=== PATIENT | female | born 1955 | race Caucasian/White ===

== ENCOUNTER 2021-12-06 12:35 | Outpatient (CLI) | payer MEDICARE, BC, SELFPAY | END 2021-12-06 12:36 | disposition home or self-care (01) | LOC: OP CLINIC 12:37 | PROVIDERS: PCP Family Medicine; Visit Provider Surgery | DX: Z12.11 Encounter for screening for malignant neoplasm of colon (principal); K63.5 Polyp of colon; K57.30 Diverticulosis of large intestine without perforation or abscess without bleeding | CPT/HCPCS: 45385; 88305; 99153; J2250; J3010 ==

== ENCOUNTER 2022-01-18 08:04 | Outpatient (CLI) | payer MEDICARE, BC, SELFPAY ==
[2022-01-18 12:09] LABS: Albumin* 4.4 g/dL (3.3-5.0); Chloride* 105 mmol/L (96-114); Potassium* 4.2 mmol/L (3.6-5.1); Sodium* 141 mmol/L (135-149)
[2022-01-18 12:11] LABS: Carbon Dioxide* 27 mmol/L (20-32); Cholesterol* 226 mg/dL (90-199); Creatinine* 0.6 mg/dL (0.5-1.5); Estimated Glomerular Filt Rate 100 ml/min
[2022-01-18 12:12] LABS: Alanine Aminotransferase* 16 U/L (4-35); Alkaline Phosphatase* 99 U/L (40-150); Aspartate Amino Transferase* 21 U/L (12-35); Bilirubin Total* 0.6 mg/dL (0.1-1.5); Blood Urea Nitrogen* 15 mg/dL (7-30); Calcium* 9.1 mg/dL (8.4-10.6); Glucose* 105 mg/dL (60-115); HDL Cholesterol* 76 mg/dL (>=50); LDL Cholesterol Calculated 134 mg/dL (<100); Triglycerides* 80 mg/dL (40-149)
== END 2022-01-18 08:05 | disposition home or self-care (01) ==
PROVIDERS: PCP Family Medicine; Visit Provider Family Medicine
DX: Z00.00 Encounter for general adult medical examination without abnormal findings (principal); E78.5 Hyperlipidemia, unspecified
CPT/HCPCS: 80053; 80061

== ENCOUNTER 2022-02-01 14:13 | Outpatient (CLI) | payer MEDICARE, BC, SELFPAY ==
--- NOTE | 2022-02-01 14:30 | CRLHL7_ITS ---
For Patients: As a result of the Century Cures Act, medical imaging exams and procedure reports are released immediately into your electronic medical record. You may view this report before your referring provider. If you have questions, please contact your health care provider. DXA BONE MINERAL DENSITY STUDY Current height (in): 64.0. Weight (lb): 155.0. Menopause age: 63. Ethnicity: White. 1. Have you had a previous hip or vertebral fracture? No. 2. Have you had any fractures during your adult life which did not result from significant trauma (e.g., auto accident)? No. 3. Did either of your parents have a hip fracture? No. 4. Do you smoke? No. 5. Have you ever taken Glucocorticoids? No. 6. Do you have rheumatoid arthritis? No. 7. Do you have secondary osteoporosis? No. 8. Do you drink 3 or more alcoholic drinks per day? No. 9. Are you being treated for osteoporosis? No. 10. Have you ever taken any of the following medications: Actonel, Evista, Fosamax, Miacalcin, Reclast, Boniva, Forteo, HRT (i.e. estrogen/hormone therapy), Protelos, Prolia, Vitamin D, Calcium, other ??? please specify. ANSWER: Yes, vitamin D. 11. Do you have any of the following medical conditions: Anorexia or bulimia, asthma or emphysema, end stage renal disease, hyperparathyroidism, any seizure disorders, cancer, inflammatory bowel diseases, hysterectomy, other ??? please specify. ANSWER: Yes, hysterectomy. 12. What was your maximum height (inches)? 64. 13. Do you perform weight bearing exercise regularly? Yes. 14. Do you regularly consume dairy products? Yes. 15. Do you drink caffeinated beverages? Yes. 16. At what age did your period start? 13. 17. Are you premenopausal? No. 18. How many full term pregnancies have you had? 2. 19. Have you ever missed your period for more than 6 months in a row (not including or menopause)? No. TECHNIQUE: Bone mineral density study was performed using the [employer]. FINDINGS: The results of the study expressed as bone mineral density (BMD) are as follows: Lumbar spine L1 to L4: BMD: 1.054 g/cm2. T-score: 0.1. Z-score: 1.9. Neck Left: BMD: 0.729 g/cm2. T-score: -1.1. Z-score: 0.4. Right: BMD: 0.754 g/cm2. T-score: -0.9. Z-score: 0.7. Total Left: BMD: 0.903 g/cm2. T-score: -0.3. Z-score: 0.9. Right: BMD: 0.902 g/cm2. T-score: -0.3. Z-score: 0.9. IMPRESSION: Osteopenia. FRAX 10-year Fracture Risk Major Osteoporotic Fracture: 8.2 percent Hip Fracture: 0.7 percent Reported Risk Factors: [place] () Neck BMD = 0.729, BMI = 26.6 Bon Gaines M.D. Diagnostic Radiologist [email or web address] Transcribed: 8:53 am DW/Dictated by: Bon Gaines MD @ 02/02/2022 8:23:00 AM (Electronically Signed)
== END 2022-02-01 14:14 | disposition home or self-care (01) ==
LOC: RAD 14:13
PROVIDERS: PCP Family Medicine; Visit Provider Family Medicine
DX: Z78.0 Asymptomatic menopausal state (principal); M85.89 Other specified disorders of bone density and structure, multiple sites
CPT/HCPCS: 77080

== ENCOUNTER 2022-02-06 14:02 | Outpatient (CLI) | payer MEDICARE, BC, SELFPAY ==
[2022-02-06 16:29] LABS: Vitamin D 25 Hydroxy* 39 ng/mL (30-80)
== END 2022-02-06 14:03 | disposition home or self-care (01) ==
LOC: NFLDREF 14:02
PROVIDERS: PCP Family Medicine; Visit Provider Family Medicine
DX: M85.852 Other specified disorders of bone density and structure, left thigh (principal)
CPT/HCPCS: 82306

== ENCOUNTER 2022-10-11 09:05 | Outpatient (CLI) | payer MEDICARE, BC, SELFPAY ==
--- NOTE | 2022-10-11 09:15 | CRLHL7_ITS ---
For Patients: As a result of the Century Cures Act, medical imaging exams and procedure reports are released immediately into your electronic medical record. You may view this report before your referring provider. If you have questions, please contact your health care provider. BILATERAL SCREENING MAMMOGRAM WITH COMPUTER-AIDED DETECTION AND TOMOSYNTHESIS TECHNIQUE: CC and MLO views were obtained. These mammographic images have been obtained using full-field digital technique. These mammographic images were interpreted with the benefit of computer-aided detection. Breast Tomosynthesis was used in this interpretation. COMPARISON FILM: 09/09/21, 08/31/20, 06/17/19 FINDINGS: The breasts are heterogeneously dense, which may obscure small masses IMPRESSION: There is no radiographic evidence for malignancy. ASSESSMENT: BI-RADS Category 2: Benign RECOMMENDATION: Routine screening mammogram in 1 year. A lay language report of this examination will be provided to the patient. Bon Gaines M.D. Diagnostic Radiologist [email or web address] EMILIE/[email or web address] Transcribed: 1:32 p.[email or web address] dhillon/Dictated by: Bon Gaines MD @ 10/11/2022 12:01:00 PM (Electronically Signed)
== END 2022-10-11 09:06 | disposition home or self-care (01) ==
LOC: MAMMO 09:06
PROVIDERS: PCP Family Medicine; Visit Provider Family Medicine
DX: Z12.31 Encounter for screening mammogram for malignant neoplasm of breast (principal); R92.2 Inconclusive mammogram
CPT/HCPCS: 77063; 77067

== ENCOUNTER 2023-02-28 08:00 | Outpatient (CLI) | payer MEDICARE, BC, SELFPAY | END 2023-02-28 08:01 | disposition home or self-care (01) | LOC: NFLDREF 03-02 12:00 | PROVIDERS: PCP Family Medicine; Referring Provider Family Medicine; Visit Provider Family Medicine | DX: Z00.00 Encounter for general adult medical examination without abnormal findings (principal); E78.5 Hyperlipidemia, unspecified; M85.852 Other specified disorders of bone density and structure, left thigh | CPT/HCPCS: 80053; 80061; 82306 ==

== ENCOUNTER 2023-05-02 13:00 | Outpatient (RCR) | payer MEDICARE, BC, SELFPAY ==
--- NOTE | 2023-03-23 15:09 | PT.OPEX ---
Please review and sign the attached outpatient physical therapy evaluation completed on 03/23/23. Thank you. PT [facility] Outpatient Eval PT [facility] Outpatient Eval Start: 03/21/23 07:56 Freq: Status: Active Protocol: Document 03/23/23 07:26 TLQ (Rec: 03/23/23 12:10 TLQ [id number]) E-signed By Leslie Alatorre DPT Physical Therapy Outpatient Evaluation Insurance Information Recert Due Date 06/21/23 Insurance Name Medicare B,Blue Cross/Blue Shield Medical Diagnosis Plantar fascia fibromatosis M72.2 Treating Diagnosis Pain in right foot M79.671 Pain in left foot M79.672 Muscle weakness M62.81 Referring MD Judith Hughes MD Subjective Subjective Has been having pain in both of her feet for a while, more so on the left. No specific injury that she can remember. Hurts the worst when she first gest out of bed. Also notices the pain when she is going on her daily walks, able to continue her walks but notices the pain. Typically walks for about 50-60 minutes per day. Recently got new shoes to improve support of her feet. Has not found anything that helps relieve the pain. Had a meniscal tear on the L about 1 /5 years ago, non surgical. Pain Comments at best: 2-3/10 on L, 0/10 on R at worst: 8/10 location: L>R plantar fascia aggravating factors: morning, walking Current Work Status Retired Precautions Therapy Limitations/Systems Review Not Limited Objective Other/Pertinent Objective Ankle DF ROM at wall: R 11.5 cm, L 12 cm Foot/ankle strength: dorsiflexion 5 B plantarflexion 17 SLHR on R, 16 SLHR on L inversion 5 B eversion R 5, L 4+ great toe extension 5 B TTP: plantar fascia B, medial longitudinal arch B, posterior tibialis muscle belly B, medial gastroc B Joint mobility: normal Gait: normal Functional Test Performed & Score FAAM - ADL Subscale 73/80 Assessment Assessment/Impression Patient is a 67 year old female who presents to outpatient physical therapy to address bilateral heel/foot pain, worse on the left. Symptoms consistent with plantar fasciitis as patient's symptoms are the worst in the morning with her first steps after she gets out of bed. She also reports soreness when walking but does not currently limit her from walking her desired distance, recently bought new walking shoes to provide more support. Strength assessment today revealed plantarflexion weakness bilaterally. No concerns regarding ankle joint mobility at this time. Patient was tender bilaterally with palpation of plantar fascia, medial gastroc, and posterior tibialis muscle belly. She was educated on anatomy and symptom pathology while in clinic today, used visual diagrams to assist with patient education. Performed STM to reduce tissue and muscular restrictions. Initiated a home program consisting of mobility and strength interventions, provided patient with a printout. She is appropriate for skilled physical therapy interventions to reduce plantar fascia pain and meet the goals as outlined below. Primary Functional Limitations plantarflexion weakness, initial steps in morning, bilateral plantar fascia pain Plan of Care Rehabilitation Potential Good Physical Therapy Goals Within 8-10 visits: - Patient will complete >20 SLHR bilaterally to demonstrate increased plantarflexion strength. - Patient will be able to complete daily walks for physical activity without onset of discomfort until at least 30 minutes of duration. - Subjective reports of pain will decrease from 8/10 to <4/ 10 to tolerate first steps when she wakes up in the morning. - Patient will adhere to HEP in order to manage symptoms IND outside of therapy. Treatment Plan/Direct Interventions Gait Training,Joint Mobilization,Manual Therapy, Neuromuscular Re-ed,Self-Care/ Home Management,Therapeutic Activities,Therapeutic Exercises Frequency/Duration 1x/week for 8-10 visits Patient Will Be Discharged From Therapy Completion of LTG(s),Skills Plateau,Independent w/HEP, Independently Progressing Evaluation Billing Untimed Code Treatment Minutes 25 Complexity Low Certification Information Initial Certification Date 03/23/23 Ending Certification Date 06/21/23 Provider Signature Shows Agreement With POC & Medical Necessity Physician Signature & Date Requested Please Sign/Date Here Physician Comment/Change : Physician NPI Number #
== END 2023-05-30 13:13 | disposition home or self-care (01) ==
PROVIDERS: PCP Family Medicine; Visit Provider Family Medicine
DX: M72.2 Plantar fascial fibromatosis (principal); M79.671 Pain in right foot; M79.672 Pain in left foot; M62.81 Muscle weakness (generalized); Z51.89 Encounter for other specified aftercare
CPT/HCPCS: 97110; 97140; 97161

== ENCOUNTER 2023-08-06 09:45 | Outpatient (RCR) | payer MEDICARE, BC, SELFPAY ==
--- NOTE | 2023-07-30 12:12 | OT.OPOE ---
OT Outpatient Ortho Eval OT Outpatient Ortho Eval* Start: 07/30/23 09:04 Freq: Status: Active Protocol: Document 07/30/23 09:04 SIS (Rec: 07/30/23 12:08 SIS [id number]) E-signed By Najma Enriquez, OTR/L, CLT OT OP Ortho Eval Details Complexity Complexity Low Insurance Information Insurance Information Blue Cross/Blue Shield, Medicare B Outpatient History/Precautions Current Condition/Medical Diagnosis Referring Provider Dr. 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 She also is helping to support her 101 year old mother who resides in an apt but patient is cooking food for her and doing daily check ins Social History Employment Status Retired Current Occupation Was previously working in a [employer], but retired now Hobbies Sewing, knitting, cooking, being active, gardening Fitness exercise 5-6 times per week- walking, swimming, daily yoga, biking. Ortho Subjective Subjective Subjective This is a 67-year-old R hand dominant patient, who was referred to skilled OT from her PCP. She presents to the clinic with a chief compliant of bilateral hand/thumb joint pain (today L is worse than R) . Patient states that she has had pain in both hands at the thumb joints for a while on and off. Then in the beginning of June she started doing some yoga and the pain got worse. Last week it was especially bad. She has not had any particular injury. She does not have any tingling or weakness in fingers. At some point maybe a little bit swelling but not much with none noted today. She has had no previous treatment for this condition. Patient's pinch & insurance assistant strengths are below the norms for her age/gender. She has a full active range of motion bilaterally with only slight muscle atrophy at the thenar. Patient states that she has a pre-garcia splint for 1 hand (can be worn by R or L) that she is wearing during heavy hand activities, asked patient to bring this into the clinic so therapist could look at it, printed a handout for a Comfort Cool CMC splint that can be purchased on [employer]-if patient wishes to do this. Pain Assessment Pain Present Pain Present Pain Reported Location Right Hand Description Dull, Achy,Throbbing,Chronic, With Movement Intensity 1 Left Hand Description Pressure,Dull, Achy,Throbbing, With Movement Intensity 4 Range of Motion and Strength Hand/Finger/Thumb Range of Motion and Strength Hand/Finger/Thumb Range of Motion and Patient has FULL AROM of Strength bilateral hands/digits and wrists (See grid for insurance assistant and pinch strengths) Hand Pinch/Cage Maker Machine Strength Hand Right Cage Maker Machine Strength Position 1 (lbs) 43 Cage Maker Machine Strength Position 2 (lbs) 43 Lateral Pinch Strength (lbs) 14 Three Point Pinch (lbs) 10 Tip Pinch Strength (lbs) 9 Left Cage Maker Machine Strength Position 1 (lbs) 31 Cage Maker Machine Strength Position 2 (lbs) 45 Lateral Pinch Strength (lbs) 11 Three Point Pinch (lbs) 10 Tip Pinch Strength (lbs) 9 OT Objective Data Observations/Posture/Limb Appearance Objective Observations No noted swelling at time of todays EVAL No deformities noted Sensation Sensation Assessment Summary Comments Sensation is intact to light touch, pressure, pain and temperature Upper Extremity Special Tests Tenosynovitis Wrist Finklestein Test Positive Right Degenerative Arthritis Hand Trapeziometacarpal Joint Grind Test Positive Left,Positive Right Median Nerve-Carpal Tunnel Wrist Phalen Test Negative Left,Negative Right Ulnar Nerve Froment's Sign Negative Left,Negative Right OT Problems Problems Problems Decreased Strength,Pain, Lifting,Gripping,Pinching Other Problems Writing,Opening Containers, Dressing Patient Potential Excellent Assessment Assessment Assessment This is a 67-year-old R hand dominant patient, who was referred to skilled OT from her PCP. She presents to the clinic with a chief compliant of bilateral hand/thumb joint pain (today L is worse than R) . Patient states that she has had pain in both hands at the thumb joints for a while on and off. Then in the beginning of June she started doing some yoga and the pain got worse. Last week it was especially bad. She has not had any particular injury. She does not have any tingling or weakness in fingers. At some point maybe a little bit swelling but not much with none noted today. She has had no previous treatment for this condition. Patient's pinch & insurance assistant strengths are below the norms for her age/gender. She has a full active range of motion bilaterally with only slight muscle atrophy at the thenar. 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 Occupational Therapy Treatment Plan - OP Potential Rehabilitation Potential Excellent Barriers Barriers to goal attainment None Set Goals Goals Set with Patient Yes Goals Goals 1. Patient will verbalize 3 activity modifications to decrease abusive/overloading of the muscles, joints, connective tissues & tendons. 2. There is high-level evidence that supports a standardized protocol of thumb proprioception exercises to address related deficits and improve ADL performance. Therapist will advance patient through all 3 stages of her individualized HEP while using errorless learning for accuracy of program. Patient will be able to demonstrate 100% of her program with use of visual/written aids. 3. Pt will demonstrate pain- free insurance assistant and pinch strength comparable to the uninvolved side in order to improve functional grasp, hold, reach, and lifting ability needed to complete self-care, leisure tasks, and work activities. 4. Through activity participation in skilled therapy sessions, and consistency in performing a customized HEP, patient will improve capacity of bilateral thumb joints, tendons and muscles to manage load in order to have less pain with ADLs, work, leisure activities and IADLs. 5. Patient will increase R ( dominant) hand insurance assistant strength from 43 lbs to >48 lbs (gain of 5 pounds) in order to return to everyday tasks w/o fear of dropping items. Target Date 8 weeks Treatment Plan Treatment Plan Evaluation,Edema Control,Joint Mobilization,Manual Therapy, Splinting,Ultrasound, Therapeutic Exercise,Self Care /Home Management,Education Expected Frequency 1-2x Week Expected Duration 8-10 Weeks Home Program Home Program Home Program Initiated Home Program Specifics CMC arthritis Program CMC Joint Education/Handouts provided to patient on 07/30/23 Handouts provided to patient today included: Article/ Patient education on CMC Arthritis; Comfort Cool Thumb CMC Restriction Splint AND/OR a picture of a Thumb Support Brace/Joint Stabilizer Orthosis; Handouts on Hand Exercises that are specific to CMC arthritis; Handouts/ Suggestions for Ergonomic friendly-everyday products (ex : álvarez mckinley aid, [employer]Hold Aqua Silicone Adaptive Aid, [place] Cuff, Built up handles-adding foam attachments for building up handles and a twist off bottle cell feed department supervisor). Handout on Joint protection, proper insurance assistant holds in order to have less stress on the joint. Handout on Myofascial release of the Adductor Muscles in the thumb webspace; Handout on CMC Osteoarthritis Program: Strengthening/Muscle Re- Education exercises; Handout on ?Hand Care Tips? as well as activity modifications Recertification Information Recertification Information Initial Certification Date 07/30/23 Recertification Due Date 10/28/23 Click To Default 'Per treatment plan' Per treatment plan Continued Plan of Care and Interventions Per treatment plan Provider Signature Shows Agreement With POC & Medical Necessity Physician Comment/Change Comment or Changes Physician NPI Number #
== END 2023-12-04 23:59 | disposition home or self-care (01) ==
PROVIDERS: PCP Family Medicine; Visit Provider Family Medicine
DX: M25.541 Pain in joints of right hand (principal); M25.542 Pain in joints of left hand; M79.641 Pain in right hand; M79.642 Pain in left hand; M25.649 Stiffness of unspecified hand, not elsewhere classified; Z51.89 Encounter for other specified aftercare
CPT/HCPCS: 97110; 97140; 97165; 97535; X5282

== ENCOUNTER 2023-12-12 14:57 | Outpatient (CLI) | payer MEDICARE, BC, SELFPAY ==
--- NOTE | 2023-12-12 15:20 | CRLHL7_ITS ---
For Patients: As a result of the Cures Act, medical imaging exams and procedure reports are released immediately into your electronic medical record. You may view this report before your referring provider. If you have questions, please contact your health care provider. BILATERAL SCREENING MAMMOGRAM WITH COMPUTER-AIDED DETECTION AND TOMOSYNTHESIS TECHNIQUE: CC and MLO views were obtained. These mammographic images have been obtained using full-field digital technique. These mammographic images were interpreted with the benefit of computer-aided detection. Breast Tomosynthesis was used in this interpretation. COMPARISON FILM: 10/11/22, 09/09/21, 08/31/20. FINDINGS: There are scattered areas of fibroglandular density IMPRESSION: There is no radiographic evidence for malignancy. ASSESSMENT: BI-RADS Category 2: Benign RECOMMENDATION: Routine screening mammogram in 1 year. A lay language report of this examination will be provided to the patient. Bon Gaines M.D. Diagnostic Radiologist [email or web address]/[email or web address] Transcribed: 12:46 p.[email or web address] dhillon/Dictated by: Bon Gaines MD @ 12/14/2023 12:36:00 PM (Electronically Signed)
== END 2023-12-12 14:58 | disposition home or self-care (01) ==
LOC: MAMMO 14:57
PROVIDERS: PCP Family Medicine; Visit Provider Family Medicine
DX: Z12.31 Encounter for screening mammogram for malignant neoplasm of breast (principal)
CPT/HCPCS: 77063; 77067

== ENCOUNTER 2024-04-25 08:46 | Outpatient (CLI) | payer MEDICARE, BC, SELFPAY | END 2024-04-25 08:47 | disposition home or self-care (01) | LOC: NFLDREF 04-29 14:50 | PROVIDERS: PCP Family Medicine; Referring Provider Family Medicine; Visit Provider Family Medicine | DX: M85.852 Other specified disorders of bone density and structure, left thigh (principal); E78.5 Hyperlipidemia, unspecified; Z13.9 Encounter for screening, unspecified | CPT/HCPCS: 80053; 80061; 82306 ==

== ENCOUNTER 2024-05-29 14:09 | Outpatient (CLI) | payer MEDICARE, BC, SELFPAY ==
--- NOTE | 2024-05-29 14:30 | CRLHL7_ITS ---
For Patients: As a result of the Century Cures Act, medical imaging exams and procedure reports are released immediately into your electronic medical record. You may view this report before your referring provider. If you have questions, please contact your health care provider. DXA BONE MINERAL DENSITY STUDY Reason for exam: Osteopenia. Current height (in): 64. Weight (lb): 168. Menopause age: 63. Ethnicity: White. 1. Have you had a previous hip or vertebral fracture? No. 2. Have you had any fractures during your adult life which did not result from significant trauma (e.g., auto accident)? No. 3. Did either of your parents have a hip fracture? Yes. 4. Do you smoke? No. 5. Have you ever taken Glucocorticoids? No. 6. Do you have rheumatoid arthritis? No. 7. Do you have secondary osteoporosis? No. 8. Do you drink 3 or more alcoholic drinks per day? No. 9. Are you being treated for osteoporosis? No. 10. Have you ever taken any of the following medications: Actonel, Evista, Fosamax, Miacalcin, Reclast, Boniva, Forteo, HRT (i.e., estrogen/hormone therapy), Protelos, Prolia, Vitamin D, Calcium, other ??? please specify. ANSWER: Yes, vitamin D. 11. Do you have any of the following medical conditions: Anorexia or bulimia, asthma or emphysema, end stage renal disease, hyperparathyroidism, any seizure disorders, cancer, inflammatory bowel diseases, hysterectomy, other ??? please specify. ANSWER: Yes, hysterectomy. 12. What was your maximum height (inches)? 64. 13. Do you perform weight bearing exercise regularly? Yes. 14. Do you regularly consume dairy products? Yes. 15. Do you drink caffeinated beverages? Yes. 16. At what age did your period start? 13. 17. Are you premenopausal? No. 18. How many full-term pregnancies have you had? 2. 19. Have you ever missed your period for more than 6 months in a row (not including or menopause)? No. TECHNIQUE: Bone mineral density study was performed using the [employer]. FINDINGS: The results of the study expressed as bone mineral density (BMD) are as follows: Lumbar spine L1 to L4: BMD: 1.039 g/cm2. T-score: -0.1. Z-score: 1.9 Neck Left: BMD: 0.686 g/cm2. T-score: -1.5. Z-score: 0.2 Right: BMD: 0.704 g/cm2. T-score: -1.3. Z-score: 0.4 Total Left: BMD: 0.926 g/cm2. T-score: -0.1. Z-score: 1.2 Right: BMD: 0.936 g/cm2. T-score: 0.0. Z-score: 1.3 IMPRESSION: Osteopenia. *Comparison exams done prior to 11/2019 were performed on different unit, [employer]. COMPARISON: Compared with scan of 02/01/2022, the bone mineral density has decreased by 1.4 percent at the spine and increased by 3.2 percent at the hip. FRAX 10-year Fracture Risk Major Osteoporotic Fracture: 16% Hip Fracture: 1.6% Reported Risk Factors: [place] () Neck BMD=0.686, BMI=28.8, parental fracture. Bon Gaines M.D. Diagnostic Radiologist [email or web address] [email or web address] [email or web address]/Dictated by: Bon Gaines MD @ 05/30/2024 8:51:00 AM (Electronically Signed)
== END 2024-05-29 14:10 | disposition home or self-care (01) ==
LOC: RAD 14:11
PROVIDERS: PCP Family Medicine; Visit Provider Family Medicine
DX: M85.852 Other specified disorders of bone density and structure, left thigh (principal); M85.88 Other specified disorders of bone density and structure, other site
CPT/HCPCS: 77080

== ENCOUNTER 2024-12-22 11:22 | Outpatient (CLI) | payer MEDICARE, BC, SELFPAY ==
--- NOTE | 2024-12-22 11:30 | CRLHL7_ITS ---
For Patients: As a result of the Century Cures Act, medical imaging exams and procedure reports are released immediately into your electronic medical record. You may view this report before your referring provider. If you have questions, please contact your health care provider. INDICATION: BILATERAL SCREENING MAMMOGRAM, ASYMPTOMATIC 69 Y/O FEMALE COMPARISON: 12/12/2023, 10/11/2022, 09/09/2021 TECHNIQUE: Digital mammogram in CC and MLO projections including computer-aided detection (CAD) and tomosynthesis. BREAST COMPOSITION: There are scattered areas of fibroglandular density. FINDINGS: No suspicious findings. ASSESSMENT: BI-RADS 2 Benign RECOMMENDATION: Annual screening mammogram. A lay language report of this examination will be provided to the patient. Dictated by: Bon Gaines MD @ 12/23/2024 09:13:18 (Electronically Signed)
== END 2024-12-22 11:23 | disposition home or self-care (01) ==
LOC: MAMMO 11:22
PROVIDERS: PCP Family Medicine; Visit Provider Family Medicine
DX: Z12.31 Encounter for screening mammogram for malignant neoplasm of breast (principal)
CPT/HCPCS: 77063; 77067

== ENCOUNTER 2025-05-11 08:13 | Outpatient (CLI) | payer MEDICARE, BC, SELFPAY | END 2025-05-11 08:14 | disposition home or self-care (01) | LOC: NFLDREF 05-14 14:40 | PROVIDERS: PCP Family Medicine; Referring Provider Family Medicine; Visit Provider Family Medicine | DX: R03.0 Elevated blood-pressure reading, without diagnosis of hypertension (principal); E78.5 Hyperlipidemia, unspecified | CPT/HCPCS: 80053; 80061; 82306 ==

== ENCOUNTER 2025-05-22 12:04 | Emergency (ER) | payer MEDICARE, BC, SELFPAY ==
[2025-05-22 12:23] VITALS: BP 157/94; PULSE 84; RESP 18; O2SAT 97
--- NOTE | 2025-05-22 14:10 | ED.ABDPAIN ---
HPI - Abdominal Pain General Date Seen: 05/22/25 Chief Complaint: Abdominal Pain Stated Complaint: Pain in lower abdomen, nausea Time Seen by Provider: 05/22/25 14:09 History of Present Illness HPI narrative: 69-year-old female a history of dyslipidemia, arthritis, white coat, presenting to the ER today with nausea and lower abdominal pain. Her symptoms began last night. Pain comes and goes in waves and when it occurs pain is so severe it makes her nauseous. Pain is in her lower abdomen but more on the left than on right. No trouble with bowel movements. No bloody urine or dysuria. She does have history of kidney stones with somewhat similar symptoms, , but she has not had a kidney stone for 35 years. It is not radiating to her flank today. She has a history of UTIs and has not had any UTI symptoms today or lately. No diarrhea or bloody stools. Allergies here in the ER pain is currently on the down swing and she is feeling a bit better. She politely declines offered pain and nausea medications. Related Data Home Medications ?Medication ?Instructions ?Recorded ?Confirmed cholecalciferol (vitamin D3) 25 25 mcg PO QDAY 07/19/23 05/22/25 mcg (1,000 unit) capsule Previous Rx's ?Medication ?Instructions ?Recorded rosuvastatin 5 mg tablet 5 mg PO QDAY #90 tabs 05/14/25 amoxicillin 875 mg-potassium 1 tab PO BID #14 tabs 05/22/25 clavulanate 125 mg tablet hydrocodone 5 mg-acetaminophen 325 1 - 2 tab PO Q4-6H PRN pain #10 05/22/25 mg tablet tabs ondansetron 4 mg disintegrating 4 mg PO Q8H PRN nausea and 05/22/25 tablet vomiting #10 tabs Allergies Allergy/AdvReac Type Severity Reaction Status Date / Time No Known Drug Allergies Allergy Verified 05/22/25 12:27 [facility] Medical History (Updated 05/22/25 @ 16:01 by Colby Banks MD) White coat syndrome without hypertension (05/14/25) ?R03.0 - Elevated blood-pressure reading, without diagnosis of hypertension (ICD-10) Bilateral plantar fasciitis ?M72.2 - Plantar fascial fibromatosis (ICD-10) Fall ?W19.XXXA - Unspecified fall, initial encounter (ICD-10) Injury of left knee (10/08/21) ?S89.92XA - Unspecified injury of left lower leg, initial encounter (ICD-10) Dyslipidemia (2018) ?E78.5 - Hyperlipidemia, unspecified (ICD-10) 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 - Primary osteoarthritis, unspecified wrist (ICD-10) Surgical History History of total hysterectomy with removal of both tubes and ovaries (2018) ?Z90.710 - Acquired absence of both cervix and uterus (ICD-10) ?Z90.722 - Acquired absence of ovaries, bilateral (ICD-10) ?Z90.79 - Acquired absence of other genital organ(s) (ICD-10) History of tonsillectomy (1975) ?Z90.89 - Acquired absence of other organs (ICD-10) Family History Prostate cancer Father Alzheimers disease Father Breast cancer Family/Other, Onset Age: 30 Stroke Mother, Onset Age: 92 Social History (Updated 05/14/25 @ 09:11 by Judith Hughes MD) Narrative: , retired from [employer], 3 kids, dog from ca 2024 non-smoker social drinker- 3/week exercise 5/ times per week- walking 60 minutes, walking, water aerobics What is your current living situation?: I presently have a place to live Problems where you live: no known problems In the past 12 months, utilities in danger of being shut off: no In past 12 months, lack of transportation kept you from medical appts, meetings, work, or getting things needed for daily living: no In the past 12 mos, have been you worried that your food would run out before you had money to buy more?: never true In the past 12 mos, the food you bought just didn't last and you didn't have money to buy more?: never true Smoking Status: Never smoker How often do you have a drink containing alcohol: 4 or more times a week How many standard drinks containing alcohol do you have on a typical day: 1 or 2 AUDIT-C Alcohol total score: 4 Non-prescribed substance use: denies use How often does anyone, including family, friends and others, physically hurt you: never How often does anyone, including family, friends and others, insult or talk down to you: never How often does anyone, including family, friends and others, threaten you with harm: never How often does anyone, including family, friends and others, scream or curse at you: never Exam Narrative: Exam Narrative: Constitutional: Appears well-developed and well-nourished. Alert. Conversant. Non toxic. HENT: Head: Atraumatic. Nose: Nose normal. Mouth/Throat: Oral mucosa is clear and moist. no trismus. Eyes: Conjunctivae normal. EOM normal. Pupils equal, round, and reactive to light. No scleral icterus. Neck: Normal range of motion. Neck supple. No tracheal deviation present. Cardiovascular: Normal rate, regular rhythm. No gallop. No friction rub. No murmur heard. Symmetric radial artery pulses Pulmonary/Chest: Effort normal. No stridor. No respiratory distress. No wheezes. No rales. No rhonchi . No tenderness. Abdominal: Soft. Bowel sounds normal. No distension. No mass. Marked left lower quad> left mid tenderness. No rebound. No guarding. No right-sided tenderness. No CVA tenderness. No upper abdominal tenderness. No inguinal hernia or mass. No rash. No umbilical hernia. Musculoskeletal: RUE: Normal range of motion. No tenderness. No deformity LUE: Normal range of motion. No tenderness. No deformity RLE: Normal range of motion. No edema. No tenderness. No deformity LLE: Normal range of motion. No edema. No tenderness. No deformity Neurological: Alert and oriented to person, place, and time. Normal strength. CN II-VII intact. No sensory deficit. GCS eye subscore is 4. GCS verbal subscore is 5. GCS motor subscore is 6. Normal coordination Skin: Skin is warm and dry. No rash noted. No pallor. Normal capillary refill. Psychiatric: Normal mood. Normal affect. Const: Vital Signs, click to edit/add: Vital Signs - 24 hr 05/22/25 12:23 05/22/25 15:34 Pulse Rate 83 Pulse Rate [Right Pulse Oximeter] 84 Respiratory Rate 18 18 Blood Pressure 146/89 H Blood Pressure [Ri ght Upper Arm] 157/94 H Pulse Oximetry 97 98 Oxygen Delivery Me thod Room Air Course Vital Signs Vital signs: Initial Vital Signs Temperature Source Temporal Artery Scan 05/22/25 12:23 Pulse Rate 84 05/22/25 12:23 Pulse Rhythm Regular 05/22/25 12:23 Pulse Strength 3+ Normal 05/22/25 12:23 Respiratory Rate 18 05/22/25 12:23 Blood Pressure 157/94 H 05/22/25 12:23 Blood Pressure Mean 115 H 05/22/25 12:23 Blood Pressure Position Sitting 05/22/25 12:23 Pulse Oximetry 97 05/22/25 12:23 Vital Signs Pulse Rate 84 05/22/25 12:23 Respiratory Rate 18 05/22/25 12:23 Blood Pressure 157/94 H 05/22/25 12:23 Pulse Oximetry 97 05/22/25 12:23 Pulse Rate 83 05/22/25 15:34 Respiratory Rate 18 05/22/25 15:34 Blood Pressure 146/89 H 05/22/25 15:34 Pulse Oximetry 98 05/22/25 15:34 Oxygen Delivery Method Room Air 05/22/25 15:34 Medications Administered Medications: Discontinued Medications Generic Name Dose Route Start Last Admin Trade Name Freq PRN Reason Stop Dose Admin Sodium Chloride 500 mls @ 500 mls/hr 05/22/25 14:11 05/22/25 16:19 0.9 % Sodium Chloride 500 Ml IV 05/22/25 15:10 Infused .Q1H ONE Infusion Ketorolac Tromethamine 15 mg 05/22/25 14:11 05/22/25 16:17 Ketorolac 15 Mg/Ml Inj IVP 05/22/25 14:12 Not Given ONCE ONE Ondansetron HCl 4 mg 05/22/25 14:11 05/22/25 16:19 Ondansetron 2 Mg/Ml Inj IVP 05/22/25 14:12 Not Given ONCE ONE MDM - Abdominal Pain MDM Narrative Medical decision making narrative: Presented to the Emergency Department with left lower quadrant abdominal pain beginning yesterday evening.. The differential diagnosis of abdominal pain includes: Appendicitis, Bowel Obstruction, Ischemia, Diverticulitis, Pancreatitis, UTI, kidney stone, Enteritis/Colitis, amongst many other etiologies. White count is 11.99. Kidney function electrolytes normal. Urinalysis is normal. No sign of hematuria or infection. CT scan indicates the presence of acute uncomplicated sigmoid diverticulitis. Given the patient's age, we will treat this with a course of antibiotics. No life threatening cause or need for emergent surgery or hospital admission is detected today. The patient was advised that if symptoms do not completely resolve within another 12-24 hours re-evaluation with primary care or return to the ED is indicated. The patient also understands that if they worsen, they should return to the ER right away. I discussed the uncertainty about the diagnosis and answered the patient's questions. Discussed the need for follow-up and potential for worsening and ER return precautions discussed. Discussed in detail. Prescriptions for [place] provided. Opiate precautions. Also prescription for Zofran. Augmentin 875/125 mg p.o. b.i.d. for 7 days. Lab Data Labs: Lab Results 05/22/25 05/22/25 Range/Units 14:29 14:42 WBC 11.99 H (4.50-11.00) K/uL RBC 4.86 (4.00-5.20) m/uL Hgb 14.5 (12.0-16.0) gm/dL Hct 42.4 (33.0-51.0) % MCV 87 (80-100) fL MCH 30 (26-34) pg MCHC 34 (32-36) gm/dL RDW Coeff of [place] 12.7 (11.5-15.5) % Plt Count 239 (140-440) K/uL Neut % (Auto) 78.1 H (42.0-72.0) % Lymph % (Auto) 13.8 L (20-44) % [place] % (Auto) 7.1 (0.0-11.0) % Eos % (Auto) 0.5 (0.0-7.0) % Baso % (Auto) 0.3 (0.0-3.0) % Neut # (Auto) 9.40 H (1.7-7.0) K/uL Lymph # (Auto) 1.70 (0.90-2.90) K/uL [place] # (Auto) 0.90 (0.00-0.90) K/UL Eos # (Auto) 0.10 (0.00-0.50) K/uL Baso # (Auto) 0.00 (0.00-0.30) K/uL Abs Immat Gran (auto) 0.00 (0.00-0.30) K/uL Imm/Tot Granulo (auto) 0.2 % Sodium 134 L (135-149) mmol/L Potassium 3.7 (3.6-5.1) mmol/L Chloride 99 (96-114) mmol/L Carbon Dioxide 25 (20-32) mmol/L Anion Gap 10 (7-15) mEq/L BUN 10 (7-30) mg/dL Creatinine 0.6 (0.5-1.5) mg/dL Estimated GFR 98 ml/min Glucose 102 (60-115) mg/dL Lactate 0.9 (0.5-1.9) mmol/L Calcium 8.8 (8.4-10.6) mg/dL Urine Color Yellow (Yellow) Urine Appearance Clear (Clear) Urine pH 7.0 (5.0-8.5) Ur Specific [place] 1.010 (1.000-1.030) Urine Protein Negative (Negative) Urine Glucose (UA) Negative (Negative) Urine Ketones Negative (Negative) Urine Blood Trace-intact A (Negative) Urine Nitrite Negative (Negative) Urine Bilirubin Negative (Negative) Urine Urobilinogen 0.2 (0.2-1.0) Ur Leukocyte Esterase Negative (Negative) Urine RBC 0-2 (0-2) Urine WBC 0-2 (0-5) Ur Squamous Epith Cells Few (None-Few) Urine Bacteria Few A (None) Imaging Data CT scan - abdomen: Attestation: I have reviewed the pertinent imaging results. Radiologist's impression: IMPRESSION: Acute uncomplicated sigmoid diverticulitis. No drainable fluid collections. Given amount of circumferential wall thickening. Recommend repeat study after treatment to evaluate for resolution. Alternatively, colonoscopy could be considered if not recently performed. Discharge Plan Discharge Clinical Impression: Diverticulitis Patient Disposition: Home, Self-Care Condition: Stable Instructions: Diverticulitis (DC) Additional Instructions: As we discussed, use the pain and nausea medications if need be. Be careful because the prescription pain killers can cause side effects such as dizziness, drowsiness, constipation, and can be addictive. Do not drive for 6 hours after taking prescription pain killer. Started antibiotics today and take them twice a day for 7 days. We expect the you should get better over the next 24-48 hours. If you are not dramatically better within 72 hours, please come back to the ER or recheck with her doctor. If you get worse-such as worsening pain, fever, weakness, vomiting, significant bloody stools, please return to the ER immediately. Even if you get better, please recheck with your regular doctor within 7-14 days. Ask your doctor to arrange follow-up colonoscopy or CT scan after your diverticulitis has resolved. Prescriptions: New hydrocodone-acetaminophen 5-325 mg tablet 1 - 2 tab PO Q4-6H PRN (Reason: pain) Qty: 10 0RF ondansetron 4 mg tablet,disintegrating 4 mg PO Q8H PRN (Reason: nausea and vomiting) Qty: 10 0RF amoxicillin-pot clavulanate 875-125 mg tablet 1 tab PO BID Qty: 14 0RF No Action rosuvastatin 5 mg tablet 5 mg PO QDAY Qty: 90 3RF cholecalciferol (vitamin D3) 25 mcg (1,000 unit) capsule 25 mcg PO QDAY Follow Up/Referrals: Judith Hughes MD [Primary Care Provider, Family Practice] Stand Alone Forms: [facility] Info Instructions
--- NOTE | 2025-05-22 14:11 | CRLHL7_ITS ---
For Patients: As a result of the Century Cures Act, medical imaging exams and procedure reports are released immediately into your electronic medical record. You may view this report before your referring provider. If you have questions, please contact your health care provider. INDICATION: Left lower quadrant pain. TECHNIQUE: CT abdomen and pelvis without contrast. COMPARISON: None. FINDINGS: Lower chest: Scattered atelectasis. Tiny hiatal hernia. Liver: Normal in size and attenuation. No suspicious masses. Gallbladder and bile ducts: No stones or inflammation. No biliary dilatation. Pancreas: Unremarkable. No mass or inflammation. Spleen: Normal in size. No masses. Adrenal glands: Normal in size. No nodules. Kidneys: Normal in size. Bilateral nonobstructing renal stones. No suspicious masses, or hydronephrosis. GI tract: Acute uncomplicated sigmoid diverticulitis. No bowel obstruction. Normal appendix. Mild colonic stool burden. Vasculature: Abdominal aorta is normal in caliber. Lymph nodes: No lymphadenopathy. Peritoneum/Abdominal Wall: Small left fat containing inguinal hernia. No sign of mass or infiltration. No free air or significant free fluid. Pelvis: Hysterectomy. Mildly distended bladder with circumferential wall thickening. No pelvic masses. Bones: Unremarkable for age. IMPRESSION: Acute uncomplicated sigmoid diverticulitis. No drainable fluid collections. Given amount of circumferential wall thickening. Recommend repeat study after treatment to evaluate for resolution. Alternatively, colonoscopy could be considered if not recently performed. Please note that all CT scans at this facility use dose modulation, iterative reconstruction, and/or weight-based dosing when appropriate to reduce radiation dose to as low as reasonably achievable. Dictated by Aime Jackson MD @ 05/22/2025 3:15:28 PM (Electronically Signed)
[2025-05-22 14:36] LABS: Appearance Urine Clear (Clear)
[2025-05-22 14:49] LABS: Hematocrit* 42.4 % (33.0-51.0); Hemoglobin* 14.5 gm/dL (12.0-16.0); Immature Granulocytes Pct Auto 0.2 %; Mean Corpuscular HGB Conc 34 gm/dL (32-36); Mean Corpuscular Hemoglobin 30 pg (26-34); Mean Corpuscular Volume 87 fL (80-100); RDW Coefficient of Variation % 12.7 % (11.5-15.5); Red Blood Count* 4.86 m/uL (4.00-5.20); White Blood Count* 11.99 K/uL (4.50-11.00)
[2025-05-22 14:50] LABS: Lactate* 0.9 mmol/L (0.5-1.9)
[2025-05-22 14:59] LABS: Immature Granulocytes Abs Auto 0.00 K/uL (0.00-0.30); Lymphocytes Absolute Auto 1.70 K/uL (0.90-2.90); Slide Review Reflex No
[2025-05-22] MEDS: 0.9 % SODIUM CHLORIDE 500 ML 500 ML IV (15:03)
[2025-05-22 15:16] LABS: Chloride* 99 mmol/L (96-114); Sodium* 134 mmol/L (135-149)
[2025-05-22 15:17] LABS: Potassium* 3.7 mmol/L (3.6-5.1)
[2025-05-22 15:19] LABS: Blood Urea Nitrogen* 10 mg/dL (7-30); Creatinine* 0.6 mg/dL (0.5-1.5); Estimated Glomerular Filt Rate 98 ml/min
[2025-05-22 15:20] LABS: Anion Gap 10 mEq/L (7-15); Calcium* 8.8 mg/dL (8.4-10.6); Carbon Dioxide* 25 mmol/L (20-32); Glucose* 102 mg/dL (60-115)
[2025-05-22 15:34] VITALS: BP 146/89; PULSE 83; RESP 18; O2SAT 98
== END 2025-05-22 16:16 | disposition home or self-care (01) ==
PROVIDERS: Emergency Provider Emergency Medicine; PCP Family Medicine
DX: K57.32 Diverticulitis of large intestine without perforation or abscess without bleeding (principal)
CPT/HCPCS: 36415; 74176; 80048; 81001; 83605; 85025; 87086; 96360; 99284; J7030

== ENCOUNTER 2025-06-06 08:39 | Outpatient (CLI) | payer MEDICARE, BC, SELFPAY | END 2025-06-06 08:40 | disposition home or self-care (01) | LOC: NFLDREF 06-08 13:51 | PROVIDERS: PCP Family Medicine; Referring Provider Family Medicine; Visit Provider Family Medicine | DX: N30.90 Cystitis, unspecified without hematuria (principal); R39.9 Unspecified symptoms and signs involving the genitourinary system | CPT/HCPCS: 87086 ==